=== PATIENT | female | born 1995 | race Caucasian/White ===

== ENCOUNTER 2016-12-18 22:25 | Emergency (ER) | payer SELFPAY ==
[~2016-12-18] VITALS: Ht 170.2 cm; Wt 54.4 kg
[2016-12-18] MEDS ORDERED: LACTATED RINGERS 1,000 ML IV ONE (22:47)
[2016-12-18 22:58] LABS: BILIRUBIN,URINE NEGATIVE (NEGATIVE); KETONES,URINE NEGATIVE (NEGATIVE); LEUKOCYTE ESTERASE ,URINE NEGATIVE (NEGATIVE); NITRITE,URINE NEGATIVE (NEGATIVE); PH,URINE 7 (5-9); PROTEIN,URINE NEGATIVE (NEGATIVE); UROBILINOGEN,URINE NORMAL (NORMAL)
[2016-12-18 23:16] LABS: BASOPHILS # (AUTO) 0.1 10^3/uL (0.0-0.1); BASOPHILS % (AUTO) 1 % (0-10); EOSINOPHILS # (AUTO) 0.4 10^3/uL (0.0-0.3); EOSINOPHILS % (AUTO) 3 % (0-10); LYMPHOCYTES # (AUTO) 5.1 X 10^3 (1.0-4.0); LYMPHOCYTES % (AUTO) 45 % (12-44); MEAN CORPUSCULAR HEMOGLOBIN 30 PG (25-34); MEAN CORPUSCULAR HGB CONC 33 G/DL (32-36); MEAN CORPUSCULAR VOLUME 91 FL (80-99); MEAN PLATELET VOLUME 10.3 FL (7.4-10.4); MONOCYTES # (AUTO) 1.1 X 10^3 (0.0-1.0); MONOCYTES % (AUTO) 9 % (0-12); NEUTROPHILS # (AUTO) 4.7 X 10^3 (1.8-7.8); NEUTROPHILS % (AUTO) 42 % (42-75); PLATELET COUNT 415 10^3/uL (130-400); RED BLOOD COUNT 4.39 10^6/uL (4.35-5.85); RED CELL DISTRIBUTION WIDTH 12.5 % (10.0-14.5); WHITE BLOOD COUNT 11.3 10^3/uL (4.3-11.0)
[2016-12-18 23:25] LABS: INR 0.9 (0.8-1.4); PROTHROMBIN TIME PATIENT 12.3 SEC (12.2-14.7)
[2016-12-18 23:36] LABS: ALANINE AMINOTRANSFERASE 34 U/L (0-55); ALBUMIN 4.7 G/DL (3.2-4.5); ANION GAP 14 MMOL/L (5-14); ASPARTATE AMINO TRANSFERASE 41 U/L (5-34); BILIRUBIN,TOTAL 0.4 MG/DL (0.1-1.0); BLOOD UREA NITROGEN 12 MG/DL (7-18); BUN/CREATININE RATIO 15; CALCIUM 9.4 MG/DL (8.5-10.1); CARBON DIOXIDE 22 MMOL/L (21-32); CHLORIDE 106 MMOL/L (98-107); CREATINE KINASE 2212 U/L (29-168); CREATININE SERUM 0.81 MG/DL (0.60-1.30); GFR ESTIMATED > 60; GLUCOSE 116 MG/DL (70-105); MAGNESIUM 1.9 MG/DL (1.8-2.4); POTASSIUM 3.4 MMOL/L (3.6-5.0); SODIUM 142 MMOL/L (135-145); TOTAL PROTEIN 7.3 G/DL (6.4-8.2)
[2016-12-18 23:38] LABS: ALCOHOL < 10 MG/DL (<10)
[2016-12-18 23:55] LABS: TROPONIN I < 0.30 NG/ML (<0.30)
--- NOTE | 2016-12-19 00:15 | ED General ---
General Chief Complaint: Cardiac/General Problems Stated Complaint: "NOT FEELING RIGHT" Nursing Triage Note: Reports "feeling weird", flushed, hot feeling. Suspected she had a seizure Thursday 12/14 as awoke on floor and tongue bitten. Pt feels heart palpiations. Note patient is very jittery. States she drinks alot of coffee including Energy drink from [employer] occasionally. Nursing Sepsis Screen: No Definite Risk Source of Information: Patient (VAGUE HISTORIAN AND GIVES CONFLICTING INFORMATION) History of Present Illness Time Seen by Provider: 22:45 Initial Comments PT ARRIVES VIA POV WITH MALE FRIEND, BOYFRIEND ARRIVES LATER STATES "JUST DON'T FEEL GOOD" "FEEL WEIRD" STATES "I FEEL FLUSHED" "I FEEL TINGLY-MY TONGUE FEELS TINGLY" TELLS ME SYMPTOMS BEGAN 20 MINUTES AGO, WHILE SHE WAS SMOKING MARIJUANA--STATES SHE SMOKES MARIJUANA EVERY DAY DENIES ANY OTHER DRUG USE PT STATES SHE HAD 1 [employer] DRINK THIS MORNING WHILE AT WORK AT [employer], OTHERWISE DENIES ANY OTHER CAFFEINE INTAKE DENIES TAKING ANY OVER THE COUNTER MEDICATIONS, OR INHALANTS, ETC. STATES SHE HAD A REALLY LARGE ALCOHOLIC DRINK LAST PM PT STATES SHE HAS HISTORY OF THE SAME PT STATES SHE HAD A POSSIBLE SEIZURE 9 MONTHS AGO--THOUGHT TO BE STRESS-RELATED , PER PT. BUT WAS TOLD SHE NEEDED TO ESTABLISH WITH PCP, FOLLOW UP WITH NEUROLOGIST AND HAVE OUTPATIENT EEG--NONE OF WHICH PT HAS DONE PT STATES SHE THINKS SHE HAD ANOTHER SEIZURE ON SATURDAY NIGHT 12/14/16--STATES SHE WAS ASLEEP ON THE COUCH AND WOKE UP ON THE FLOOR, AND HAD BITTEN HER TONGUE. STATES SHE VOMITED FOR 6 HOURS STRAIGHT, AFTERWARD. DID NOT SEEK CARE AT THAT TIME . WAS NOT WITNESSED. WAS SEEN AT [facility] TODAY FOR THIS --NO TESTS WERE DONE, AND STATES SHE WAS TOLD SHE NEEDED TO SEE A NEUROLOGIST, BUT NO REFERRAL WAS DONE PT STATES SHE IS UNDER ALOT OF STRESS--STATES "I'M CHANGING MY LIFE-I'M ABOUT TO MOVE" DENIES RECENT ILLNESS LMP 11/19/16. NORMAL. NO CONTROL NO PCP Allergies and Home Medications Allergies Coded Allergies: No Known Drug Allergies (Unverified , 03/14/16) Home Medications No Active Prescriptions or Reported Meds Constitutional: see HPI, No chills, No diaphoresis, No dizziness, No fever, No malaise, No weakness EENTM: other (DOES HAVE A BRUISE TO RIGHT EYELID), see HPI (ABRASION TO TONGUE) , No blurred vision, No double vision, No vision loss Respiratory: no symptoms reported Cardiovascular: no symptoms reported, No chest pain, No edema, No palpitations , No vascular heart diseas Gastrointestinal: see HPI (NO SYMPTOMS NOW) Musculoskeletal: no symptoms reported Skin: no symptoms reported Psychiatric/Neurological: See HPI, Anxiety, Denies Headache, Denies Numbness, Denies Paresthesia, Seizure (PER HPI--POSSIBLE SEIZURE ON SATURDAY), Denies Tingling, Denies Tremors, Denies Weakness Hematologic/Lymphatic: No Symptoms Reported Immunological/Allergic: no symptoms reported Past Kvwphbb-[id number]-[id number] Hx Patient Social History Alcohol Use: Regular Use (DRINKS 1-2 TIMES A WEEK) Recreational Drug Use: Yes (DAILY MARIJUANA USE) Smoking Status: Never a Smoker Recent Foreign Travel: No Contact w/Someone Who Travel: No Recent Infectious Disease Expo: No Recent Hopitalizations: No Seasonal Allergies Seasonal Allergies: No Surgeries HX Surgeries: Yes Surgeries: Tonsillectomy Respiratory Hx Respiratory Disorders: No Cardiovascular Hx Cardiac Disorders: No Neurological Hx Neurological Disorders: No (POSSIBLE SEIZURES--NO WORK UP OR NEUROLOGIST EVALUATION OF 12/18/16) Reproductive System : No Female Reproductive Disorders: Denies Genitourinary Hx Genitourinary Disorders: No Gastrointestinal Hx Gastrointestinal Disorders: No Musculoskeletal Hx Musculoskeletal Disorders: No Endocrine Hx Endocrine Disorders: No HEENT HX ENT Disorders: Yes Blood Transfusions Hx Blood Disorders: No Physical Exam Vital Signs Vital Sign - Last 12Hours 12/18/16 22:31 Temp 99.8 Pulse 139 Resp 20 B/P (MAP) 166/111 Pulse Ox 100 O2 Delivery Room Air Capillary Refill : Less Than 3 Seconds General Appearance: No Apparent Distress, WD/WN, Anxious, Other (MILDLY TREMULOUS. PT ACTS "SPACEY"-- SOMEWHAT HALTING SPEECH AND STOPS TALKING MID- SENTENCE. HAS RAPID "STARTLED" MOVEMENTS /HEAD TURNING I AM INTERVIEWING HER. ) HEENT: PERRL/EOMI, TMs Normal, Pharynx Normal, Other (OLDER APPEARING BRUISE TO LEFT UPPER EYELID. HAS HEALING ABRASION TO RIGHT SIDE OF TONGUE) Neck: Full Range of Motion, Normal Inspection, Non Tender, Supple Respiratory: Normal Breath Sounds, No Accessory Muscle Use, No Respiratory Distress Cardiovascular: No Edema, No JVD, No Murmur, Normal Peripheral Pulses, Tachycardia Gastrointestinal: Normal Bowel Sounds, No Organomegaly, No Pulsatile Mass, Non Tender, Soft Back: Normal Inspection, No CVA Tenderness, No Vertebral Tenderness Extremity: Normal Capillary Refill, Normal Inspection, Normal Range of Motion, Non Tender, No Calf Tenderness, No Pedal Edema Neurologic/Psychiatric: Alert, Oriented x3, No Motor/Sensory Deficits, prosthetic assistant II- XII Norm as Tested Reflexes: 3+ Bicep (R), 3+ Bicep (L), 3+ Knee (R), 3+ Knee (L) Skin: Normal Color, Warm/Dry Progress/Results/Core Measures Results/Orders Lab Results Laboratory Tests Test 12/18/16 22:50 12/18/16 23:00 Range/Units Urine Color YELLOW Urine Clarity CLEAR Urine pH 7 5-9 Urine Specific [place] 1.010 L 1.016-1.022 Urine Protein NEGATIVE NEGATIVE Urine Glucose (UA) NEGATIVE NEGATIVE Urine Ketones NEGATIVE NEGATIVE Urine Nitrite NEGATIVE NEGATIVE Urine Bilirubin NEGATIVE NEGATIVE Urine Urobilinogen NORMAL NORMAL MG/DL Urine Leukocyte Esterase NEGATIVE NEGATIVE Urine RBC (Auto) NEGATIVE NEGATIVE Urine RBC NONE /HPF Urine WBC NONE /HPF Urine Squamous Epithelial Cells 2-5 /HPF Urine Crystals NONE /LPF Urine Bacteria NONE /HPF Urine Casts NONE /LPF Urine Mucus NEGATIVE /LPF Urine Culture Indicated NO Urine Opiates Screen NEGATIVE NEGATIVE Urine Oxycodone Screen NEGATIVE NEGATIVE Urine Methadone Screen NEGATIVE NEGATIVE Urine Propoxyphene Screen NEGATIVE NEGATIVE Urine Barbiturates Screen NEGATIVE NEGATIVE Ur Tricyclic Antidepressants Screen NEGATIVE NEGATIVE Urine Phencyclidine Screen NEGATIVE NEGATIVE Urine Amphetamines Screen NEGATIVE NEGATIVE Urine Methamphetamines Screen NEGATIVE NEGATIVE Urine Benzodiazepines Screen NEGATIVE NEGATIVE Urine Cocaine Screen NEGATIVE NEGATIVE Urine Cannabinoids Screen POSITIVE H NEGATIVE White Blood Count 11.3 H 4.3-11.0 10^3/uL Red Blood Count 4.39 4.35-5.85 10^6/uL Hemoglobin 13.3 11.5-16.0 G/DL Hematocrit 40 35-52 % Mean Corpuscular Volume 91 80-99 FL Mean Corpuscular Hemoglobin 30 25-34 PG Mean Corpuscular Hemoglobin Concent 33 32-36 G/DL Red Cell Distribution Width 12.5 10.0-14.5 % Platelet Count 415 H 130-400 10^3/uL Mean Platelet Volume 10.3 7.4-10.4 FL Neutrophils (%) (Auto) 42 42-75 % Lymphocytes (%) (Auto) 45 H 12-44 % Monocytes (%) (Auto) 9 0-12 % Eosinophils (%) (Auto) 3 0-10 % Basophils (%) (Auto) 1 0-10 % Neutrophils # (Auto) 4.7 1.8-7.8 X 10^3 Lymphocytes # (Auto) 5.1 H 1.0-4.0 X 10^3 Monocytes # (Auto) 1.1 H 0.0-1.0 X 10^3 Eosinophils # (Auto) 0.4 H 0.0-0.3 10^3/uL Basophils # (Auto) 0.1 0.0-0.1 10^3/uL Prothrombin Time 12.3 12.2-14.7 SEC INR Comment 0.9 0.8-1.4 Activated Partial Thromboplast Time 25 24-35 SEC Sodium Level 142 135-145 MMOL/L Potassium Level 3.4 L 3.6-5.0 MMOL/L Chloride Level 106 98-107 MMOL/L Carbon Dioxide Level 22 21-32 MMOL/L Anion Gap 14 5-14 MMOL/L Blood Urea Nitrogen 12 7-18 MG/DL Creatinine 0.81 0.60-1.30 MG/DL Estimat Glomerular Filtration Rate > 60 BUN/Creatinine Ratio 15 Glucose Level 116 H 70-105 MG/DL Calcium Level 9.4 8.5-10.1 MG/DL Magnesium Level 1.9 1.8-2.4 MG/DL Total Bilirubin 0.4 0.1-1.0 MG/DL Aspartate Amino Transf (AST/SGOT) 41 H 5-34 U/L Alanine Aminotransferase (ALT/SGPT) 34 0-55 U/L Alkaline Phosphatase 38 L 40-136 U/L Total Creatine Kinase 2212 H 29-168 U/L Creatine Kinase MB 1.7 <6.6 NG/ML Troponin I < 0.30 <0.30 NG/ML B-Type Natriuretic Peptide < 10.0 <100.0 PG/ML Total Protein 7.3 6.4-8.2 G/DL Albumin 4.7 H 3.2-4.5 G/DL TSH [place] Testing 1.73 0.35-4.94 UIU/ML Serum Alcohol < 10 <10 MG/DL My Orders Orders - DIMITRY ZUNIGA DO Saline Lock/Iv-Start (12/18/16 22:47) Ekg Tracing (12/18/16 22:47) Monitor-Rhythm Ecg Trace Only (12/18/16 22:47) Alcohol (12/18/16 22:47) BNP (12/18/16 22:47) Cbc With Automated Diff (12/18/16 22:47) Comprehensive Metabolic Panel (12/18/16 22:47) Creatine Kinase (12/18/16 22:47) Creatine Kinase Mb (12/18/16 22:47) Drug Screen Stat (Urine) (12/18/16 22:47) Magnesium (12/18/16:47) Protime With Inr (12/18/16:47) Partial Thromboplastin Time (12/18/16 22:47) Thyroid Analyzer (12/18/16 22:47) Troponin I (12/18/16 22:47) Ua Culture If Indicated (12/18/16 22:47) Saline Lock/Iv-Start (12/18/16 22:47) Lactated Ringers (Lr 1000 Ml Iv Solution (12/18/16 22:47) Urine Bedside (12/18/16 22:47) Ct Head Wo (12/19/16 00:02) Medications Given in ED Current Medications Medications Dose Ordered Sig/Leisa Route Start Time Stop Time Status Last Admin Dose Admin Lactated Ringer's 1,000 ml @ 0 mls/hr Q0M ONCE IV 12/18/16 22:47 12/18/16 22:50 DC 12/18/16 23:11 999 MLS/HR Vital Signs/I&O Vital Sign - Last 12Hours 12/18/16 12/19/16 22:31 01:08 Temp 99.8 98.4 Pulse 139 99 Resp 20 20 B/P (MAP) 166/111 Pulse Ox 100 98 O2 Delivery Room Air Blood Pressure Mean: 129 Point of Care Testing Urine -Bedside: Negative Progress Note : Progress Note UNEVENTFUL ER STAY--PT FEELS MUCH BETTER AT DISMISSAL HEART RATE DOWN < 100 AT TIME OF DISMISSAL PT LATER TELLS RN THAT SHE HAS HAD "TACHYCARDIA" IN THE PAST, BUT HAS NEVER BEEN REFERRED TO OR SEEN BY A SITE INTERPRETER ECG Initial ECG Impression Time: 22:44 Initial ECG Rate: 135 Initial ECG Rhythm: S.Tach Initial ECG Comparisson: No Previous ECG Available Diagnostic Imaging Comments CT HEAD--NO ACUTE PROCESS, PER [facility] VIA FAX @ [id number] Reviewed: Reviewed by Me Departure Impression Impression: Primary Impression: Marijuana abuse, continuous Additional Impressions: POSSIBLE ADVERSE REACTION TO MARIJUANA POSSIBLE RECENT SEIZURE ACTIVITY Sinus tachycardia Abrasion of tongue Periorbital hematoma of right eye Disposition: HOME, SELF-CARE Condition: Improved Departure-Patient Inst. Referrals: NO,LOCAL PHYSICIAN (PCP/Family) Primary Care Physician Patient Instructions: Marijuana Use and Addiction (DC), Palpitations (DC), Seizures, Adult (DC), Sinus Tachycardia (DC) Add. Discharge Instructions: NO MARIJUANA OR ANY OTHER DRUGS NO CAFFEINE OR ANY OTHER STIMULANTS LOTS OF CLEAR LIQUIDS--WATER, BROTH, JELLO, GATORADE CALL IN THE MORNING TO ESTABLISH CARE WITH LOCAL DR OF CHOICE FOR FURTHER EVALUATION RETURN TO ER IF SYMPTOMS WORSEN NO DRIVING FOR A MINIMUM OF 6 MONTHS, AND ONLY AFTER YOU ARE CLEARED BY A DR. All discharge instructions reviewed with patient and/or family. Voiced understanding. Scripts No Active Prescriptions or Reported Meds DIMITRY ZUNIGA DO December 19, 2016 00:14
[2016-12-19 01:08] VITALS: BP 134/94
--- NOTE | 2016-12-19 08:24 | Diagnostic Imaging Report ---
PROCEDURE: CT head without contrast. TECHNIQUE: Multiple contiguous axial images were obtained through the brain without the use of intravenous contrast. INDICATION: Lightheadedness, seizures Comparison October 24, 2015 . FINDINGS: There is no intracranial hemorrhage, edema or mass effect. The brain parenchyma appears unremarkable. No hydrocephalus. The visualized portions of the orbits and paranasal sinuses appear unremarkable. IMPRESSION: Unremarkable study. Dictated by: Dictated on workstation # [id number]
== END 2016-12-19 01:08 | disposition home or self-care (01) ==
LOC: EDUNIT# 22:25 → ER 22:27
DX: F12.10 Cannabis abuse, uncomplicated (principal); R00.0 Tachycardia, unspecified; S00.512A Abrasion of oral cavity, initial encounter; S00.11XA Contusion of right eyelid and periocular area, initial encounter; W08.XXXA Fall from other furniture, initial encounter; Y92.009 Unspecified place in unspecified non-institutional (private) residence as the place of occurrence of the external cause; Y99.8 Other external cause status
CPT/HCPCS: 36415; 70450; 80053; 80306; 80320; 81000; 82550; 82553; 83735; 83880; 84443; 84484; 84703; 85025; 85610; 85730; 93005; 93041